=== PATIENT | female | born 1960 | race African-American/Black ===

== ENCOUNTER 2016-06-24 13:43 | Inpatient (IN) | payer OTHER, MEDICAID ==
[2016-06-24] MEDS ORDERED: MORPHINE SULFATE 8 MG/ML INJ ONE (13:53)
[2016-06-24] MEDS ORDERED: ONDANSETRON HCL 4 MG/2 ML VIAL ONE (13:53)
[2016-06-24] MEDS ORDERED: IOHEXOL 350 MG/ML 10 ML VIAL (for RAD DIAG) IV ONE (14:09)
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
[2016-06-24 14:18] LABS: AUTOMATED NEUTROPHIL # 3.5 TH/MM3 (1.8-7.7); BASOPHIL # 0.1 TH/MM3 (0-0.2); BASOPHIL % 1.1 % (0.0-2.0); EOSINOPHIL # 0.1 TH/MM3 (0-0.4); EOSINOPHIL % 0.9 % (0.0-4.0); HEMATOCRIT 35.9 % (35.0-46.0); HEMO FLAGS DIFF FINAL; LYMPHOCYTE # 2.7 TH/MM3 (1.0-4.8); MEAN CELL VOLUME 80.5 FL (80.0-100.0); MEAN CORPUSCULAR HEMOGLOBIN 27.1 PG (27.0-34.0); MEAN CORPUSCULAR HGB CONC 33.7 % (32.0-36.0); MONO % 7.7 % (0.0-8.0); NEUT % 51.3 % (16.0-70.0); PLATELET COUNT 295 TH/MM3 (150-450); RED BLOOD COUNT 4.46 MIL/MM3 (4.00-5.30); RED CELL DISTRIBUTION WIDTH 17.1 % (11.6-17.2); WHITE BLOOD COUNT 6.8 TH/MM3 (4.0-11.0)
[2016-06-24 14:25] LABS: APTT (PATIENT) 28.7 SEC (24.3-30.1); PROTHROMBIN TIME - PATIENT 10.5 SEC (9.8-11.6)
[2016-06-24 14:26] LABS: I-STAT POTASSIUM 3.9 MMOL/L (3.5-4.9)
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
[2016-06-24 14:40] VITALS: BP 128/63; PULSE 105; RESP 18; O2SAT 96
[2016-06-24 14:41] VITALS: O2SAT 95
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
[2016-06-24] MEDS ORDERED: SYMB80AE INH (14:45)
[2016-06-24] MEDS ORDERED: OXYC-395 PO (14:45)
[2016-06-24] MEDS ORDERED: [UNRECOGNIZED DRUG - OTHER] (14:45)
[2016-06-24] MEDS ORDERED: SING4GRA (14:45)
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
[2016-06-24] MEDS ORDERED: SODIUM CHLORIDE 0.9% FLUSH 5 ML FLUSH IVF PRN (15:00)
[2016-06-24] MEDS ORDERED: ONDANSETRON HCL 4 MG/2 ML VIAL IV PRN (15:00)
[2016-06-24] MEDS ORDERED: CHLORHEXIDINE GLUCONATE 2 % 1 PACK (2 CLOTHS) TOP PRN (15:00)
[2016-06-24] MEDS ORDERED: ACETAMINOPHEN/HYDROcodone 325 MG/5 MG TAB PO PRN (15:00)
[2016-06-24] MEDS ORDERED: MISCELLANEOUS NURSING INFORMATION XX SCH (15:00)
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
[2016-06-24] MEDS: RESP: ALBUTEROL 2.5 MG/IPRATROPIUM 0.5 MG NEB (SCH) NEB ×2 (15:20→19:47)
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
[2016-06-24] MEDS ORDERED: ENALAPRILAT 1.25 MG/ML VIAL IV PRN (16:00)
[2016-06-24 18:30] VITALS: BP 129/69; PULSE 98; RESP 18; O2SAT 98
[2016-06-24] MEDS: ENOXAPARIN SODIUM 30 MG/0.3 ML SYRINGE SQ SCH (18:48)
[2016-06-24] MEDS: ACETAMINOPHEN/HYDROcodone 325 MG/5 MG TAB PO PRN (18:48)
[2016-06-24] MEDS: DOCUSATE SODIUM 100 MG CAP PO SCH (21:00)
[2016-06-24] MEDS ORDERED: MAGNESIUM HYDROXIDE SUSP 30 ML CUP PO SCH (21:00)
[2016-06-24] MEDS ORDERED: BACITRACIN TOP OINT 15 GM TUBE TOP SCH (21:00)
[2016-06-24 23:09] VITALS: BP 134/69; PULSE 85; RESP 18; O2SAT 96
[2016-06-25] MEDS: ACETAMINOPHEN/HYDROcodone 325 MG/5 MG TAB PO PRN ×2 (02:09→08:56)
[2016-06-25] MEDS ORDERED: CHLORHEXIDINE GLUCONATE 2 % 1 PACK (2 CLOTHS) TOP SCH (04:00)
[2016-06-25] MEDS: ENOXAPARIN SODIUM 30 MG/0.3 ML SYRINGE SQ SCH (04:08)
[2016-06-25 04:45] VITALS: BP 110/63; PULSE 81; RESP 18; TEMP 97.8; O2SAT 97
[2016-06-25] MEDS: RESP: ALBUTEROL 2.5 MG/IPRATROPIUM 0.5 MG NEB (SCH) NEB ×2 (07:25→12:00)
[2016-06-25 07:46] LABS: AUTOMATED NEUTROPHIL # 2.5 TH/MM3 (1.8-7.7); BASOPHIL % 0.6 % (0.0-2.0); EOSINOPHIL # 0.1 TH/MM3 (0-0.4); EOSINOPHIL % 2.2 % (0.0-4.0); HEMATOCRIT 32.5 % (35.0-46.0); HEMO FLAGS DIFF FINAL; LYMPH % 42.8 % (9.0-44.0); LYMPHOCYTE # 2.4 TH/MM3 (1.0-4.8); MEAN CELL VOLUME 81.4 FL (80.0-100.0); MEAN CORPUSCULAR HGB CONC 33.2 % (32.0-36.0); MONO % 10.8 % (0.0-8.0); NEUT % 43.6 % (16.0-70.0); PLATELET COUNT 264 TH/MM3 (150-450); RED CELL DISTRIBUTION WIDTH 17.1 % (11.6-17.2); WHITE BLOOD COUNT 5.7 TH/MM3 (4.0-11.0)
[2016-06-25 08:24] LABS: BICARBONATE 26.3 MEQ/L (21.0-32.0); POTASSIUM 3.8 MEQ/L (3.5-5.1)
[2016-06-25] MEDS: DOCUSATE SODIUM 100 MG CAP PO SCH (08:56)
[2016-06-25 09:16] VITALS: BP 134/75; PULSE 91; RESP 18; TEMP 98.1; O2SAT 94
[2016-06-25 09:50] VITALS: RESP 18
[2016-06-25] MEDS ORDERED: DOCU1CAP39 PO (11:49)
[2016-06-25] MEDS ORDERED: MOTR200T4 PO (11:49)
[2016-06-25] MEDS ORDERED: ACET1CAP18 PO (11:49)
[2016-06-25] MEDS ORDERED: MILKSUS PO (11:49)
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
== END 2016-06-25 15:00 | disposition home or self-care (01) | DRG 556 ==
LOC: NEPI 13:43 → NEDA 15:29 → EDBD 15:29 → OBSVTOIN 15:29 → NEDH 20:05 → NEPGCP 06-25 01:26
PROVIDERS: ADMIT Surgery; ATTEND Surgery
DX: M25.512 Pain in left shoulder (principal); E66.01 Morbid (severe) obesity due to excess calories; D73.89 Other diseases of spleen; S00.81XA Abrasion of other part of head, initial encounter; M54.9 Dorsalgia, unspecified; M25.552 Pain in left hip; V49.40XA Driver injured in collision with unspecified motor vehicles in traffic accident, initial encounter; G47.33 Obstructive sleep apnea (adult) (pediatric); J45.909 Unspecified asthma, uncomplicated
CPT/HCPCS: 70450; 71010; 71260; 72125; 72128; 72131; 72170; 73020; 73560; 74177; 80048; 82435; 82565; 82947; 84132; 84295; 84520; 85025; 85610; 85730; 86850; 86900; 86901; 94640; 94664; 96374; 96375; 99291; A0431-QM-SH; A0436-QM-SH; G0390; J1650; J2270; J2405; Q9967